=== PATIENT | female | born 1945 | race Two or more races ===

== ENCOUNTER 2021-03-22 10:31 | Emergency (ER) | payer OTHER ==
[~2021-03-22] VITALS: Ht 154.9 cm; Wt 79.4 kg
[2021-03-22] MEDS ORDERED: COZAAR50 MG PO (11:06)
[2021-03-22] MEDS ORDERED: SYNTHROID112 MCG PO (11:06)
[2021-03-22] MEDS ORDERED: DICLOFENAC POTA50 MG PO (15:22)
[2021-03-22] MEDS ORDERED: ORPHENADRINE C100 MG PO (15:22)
== END 2021-03-22 16:15 | disposition home or self-care (01) ==
LOC: ER 10:31
DX: S40.011A Contusion of right shoulder, initial encounter (principal); W18.39XA Other fall on same level, initial encounter; Y93.89 Activity, other specified; Y92.89 Other specified places as the place of occurrence of the external cause; Y99.8 Other external cause status; M62.838 Other muscle spasm

== ENCOUNTER 2021-11-24 10:37 | Outpatient (CLI) | payer OTHER ==
[~2021-11-24 10:37] MED LIST: COZAAR50 MG PO; DICLOFENAC POTA50 MG PO; ORPHENADRINE C100 MG PO; SYNTHROID112 MCG PO
== END 2021-11-24 10:38 | disposition home or self-care (01) ==
LOC: RAD 10:37
PROVIDERS: ATTEND General Practice
DX: M25.512 Pain in left shoulder (principal)

== ENCOUNTER 2021-12-02 10:58 | Outpatient (CLI) | payer OTHER | END 2021-12-02 11:00 | disposition home or self-care (01) | LOC: RAD 10:58 | PROVIDERS: ATTEND General Practice | DX: R07.9 Chest pain, unspecified (principal) ==

== ENCOUNTER 2022-03-26 19:57 | Emergency (ER) | payer OTHER ==
[~2022-03-26] VITALS: Ht 154.9 cm; Wt 72.6 kg
[2022-03-26] MEDS ORDERED: GLUMETZA500 MG PO (20:08)
[2022-03-26] MEDS ORDERED: NORFLEX100MG PO (22:16)
== END 2022-03-26 22:22 | disposition home or self-care (01) ==
LOC: ER 19:57
DX: I10 Essential (primary) hypertension (principal); M54.2 Cervicalgia; E11.9 Type 2 diabetes mellitus without complications; Z79.84 Long term (current) use of oral hypoglycemic drugs

== ENCOUNTER → 2022-04-01 07:22 | Outpatient (CLI) | payer OTHER ==
[~2022-04-01 07:22] MED LIST changes: +GLUMETZA500 MG PO; +NORFLEX100MG PO
== END | disposition home or self-care (01) ==
LOC: NUCLEAR 07:00
PROVIDERS: ATTEND Internal Medicine Cardiovascular Disease
DX: I25.9 Chronic ischemic heart disease, unspecified (principal)
CPT/HCPCS: 78452; 93017; A9500; J0153

== ENCOUNTER 2022-09-12 11:24 | Outpatient (CLI) | payer OTHER | END 2022-09-12 11:25 | disposition home or self-care (01) | LOC: RAD 11:24 | PROVIDERS: ATTEND Specialist | DX: I10 Essential (primary) hypertension (principal) ==

== ENCOUNTER 2022-09-30 06:37 | Outpatient (CLI) | payer OTHER | END 2022-09-30 07:00 | disposition home or self-care (01) | LOC: TOM 06:37 | PROVIDERS: ATTEND Specialist | DX: K85.80 Other acute pancreatitis without necrosis or infection (principal) ==

== ENCOUNTER 2023-09-04 13:56 | Outpatient (CLI) | payer OTHER | END 2023-09-04 14:03 | disposition home or self-care (01) | LOC: RAD 13:56 | PROVIDERS: ATTEND Specialist | DX: J45.991 Cough variant asthma (principal) ==

== ENCOUNTER 2023-09-07 13:30 | Outpatient (CLI) | payer OTHER | END 2023-09-07 13:31 | disposition home or self-care (01) | LOC: NUCLEAR 13:30 | PROVIDERS: ATTEND Specialist | DX: M81.0 Age-related osteoporosis without current pathological fracture (principal); Z13.820 Encounter for screening for osteoporosis ==

== ENCOUNTER → 2025-01-02 | Outpatient (CLI) | payer OTHER | END | disposition home or self-care (01) | LOC: SONOGRAMA 10:44 | PROVIDERS: ATTEND Specialist | DX: R10.9 Unspecified abdominal pain (principal) ==

== ENCOUNTER 2025-02-04 07:21 | Outpatient (CLI) | payer OTHER | END 2025-02-04 07:24 | disposition home or self-care (01) | LOC: NUCLEAR 07:21 | PROVIDERS: ATTEND Internal Medicine | DX: I20.9 Angina pectoris, unspecified (principal) | CPT/HCPCS: 78452; 93017; A9500; J0153 ==

== ENCOUNTER 2025-06-09 13:12 | Outpatient (CLI) | payer OTHER | END 2025-06-09 13:17 | disposition home or self-care (01) | LOC: RAD 13:12 | PROVIDERS: ATTEND Specialist | DX: J45.998 Other asthma (principal) ==

== ENCOUNTER 2025-06-09 13:42 | Outpatient (CLI) | payer OTHER ==
[2025-06-09 14:07] LABS: BASO % 0.5 % (0.1-1.2); EOS # 0.15 (0.04-0.54); EOS % 2.4 % (0.7-7.0); LYMPH # 1.91 (1.18-3.74); LYMPH % 30.4 % (19.3-53.1); MEAN PLATELET VOLUME 9.10 fl (9.4-12.4); MONO # 0.78 (0.24-0.82); NEUT # 3.30 (1.56-6.13); NEUT % 52.5 % (34.0-71.1); RED CELL DISTRIBUTION WIDTH 14.9 % (11.6-14.4)
[2025-06-09 14:08] LABS: MONO % 12.4 % (4.7-12.5)
[2025-06-09 14:12] LABS: ERYTHROCYTE SEDIMENTATION RATE 12 mm/hr (0-30)
== END 2025-06-09 13:44 | disposition home or self-care (01) ==
LOC: LAB 13:42
PROVIDERS: ATTEND Specialist
DX: D64.9 Anemia, unspecified (principal); J45.998 Other asthma; M35.3 Polymyalgia rheumatica